=== PATIENT | female | born 1980 | race Caucasian/White ===

== ENCOUNTER 2018-04-18 14:45 | Emergency (ER) | payer MEDICAID ==
[~2018-04-18] VITALS: Ht 170.2 cm; Wt 111.8 kg
[~2018-04-18 14:45] MED LIST: BUPR100T6 PO; CLON0.5T PO; CLON1TAB23 PO; DIAZ2TAB3 PO; FERR325T18 PO; OMEP-110 PO; QUET50TA5 PO; ZOLP10TA PO
[2018-04-18 17:17] VITALS: BP 93/50
[2018-04-18 17:17] LABS: BASOPHILS # (AUTO) 0.04 x10^3/uL (0-0.1); BASOPHILS % (AUTO) 1 % (0-1); EOSINOPHILS # (AUTO) 0.11 x10^3/uL (0-0.4); EOSINOPHILS % (AUTO) 2 % (1-7); LYMPHOCYTES % (AUTO) 38 % (22-44); MD NO; MEAN CORPUSCULAR HEMOGLOBIN 31.8 pg (27.0-34.8); MEAN CORPUSCULAR HGB CONC 34.3 g/dL (32.4-35.8); MEAN CORPUSCULAR VOLUME 92.8 fL (80-100); MEAN PLATELET VOLUME 8.6 fL (7.4-10.4); MONOCYTES # (AUTO) 0.33 x10^3/uL (0.2-0.8); MONOCYTES % (AUTO) 6 % (2-9); NEUTROPHILS # (AUTO) 3.16 x10^3/uL (1.8-6.8); NEUTROPHILS % (AUTO) 54 % (42-75); PLATELET COUNT 278 x10^3/uL (130-400); RED BLOOD COUNT 4.87 x10^6/uL (3.82-5.3); RED CELL DISTRIBUTION WIDTH 13.7 % (9.6-15.2)
[2018-04-18 17:28] LABS: ALANINE AMINOTRANSFERASE 31 U/L (12-78); ALBUMIN 3.9 g/dL (3.4-5.0); ANION GAP 9 mmol/L (5-15); CALCIUM 8.6 mg/dL (8.5-10.1); CHLORIDE 113 mmol/L (98-107); CREATININE 0.75 mg/dL (0.55-1.02); SALICYLATE LEVEL 3.9 mg/dL (2.8-20.0)
[2018-04-18 17:30] LABS: ALKALINE PHOSPHATASE 103 U/L (45-117); BILIRUBIN,TOTAL 0.2 mg/dL (0.2-1.0); TOTAL PROTEIN 7.8 g/dL (6.4-8.2)
[2018-04-18 17:34] LABS: ACETAMINOPHEN < 2 mcg/mL (10-30)
[2018-04-18 18:19] LABS: AMPHETAMINE SCREEN, URINE Negative (Negative); BARBITURATE SCREEN, URINE Negative (Negative); BENZODIAZEPINE SCREEN, URINE Negative (Negative); CANNABINOID SCREEN, URINE Negative (Negative); COCAINE SCREEN, URINE Negative (Negative); METHADONE SCREEN, URINE Negative (Negative); OPIATE SCREEN, URINE Negative (Negative)
== END 2018-04-18 18:44 | disposition home or self-care (01) ==
LOC: ED 17:09
DX: L03.032 Cellulitis of left toe (principal); F10.220 Alcohol dependence with intoxication, uncomplicated
CPT/HCPCS: 80053; 80307; 80329; 82962; 85025; 99284; G0480

== ENCOUNTER 2018-07-31 19:19 | Emergency (ER) | payer MEDICAID ==
[~2018-07-31] VITALS: Ht 170.2 cm; Wt 104.0 kg
[2018-07-31] MEDS ORDERED: LIDOCAINE 1%, 10ML INFIL ONE (19:30)
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
[2018-07-31] MEDS ORDERED: OXYC-432 PO (19:31)
[2018-07-31] MEDS ORDERED: LIDOCAINE-MPF 1%, 5ML ONE ×2 (19:45→19:52)
[2018-07-31 20:06] LABS: AMPHETAMINE SCREEN, URINE Negative (Negative); BARBITURATE SCREEN, URINE Negative (Negative); BENZODIAZEPINE SCREEN, URINE Negative (Negative); CANNABINOID SCREEN, URINE Negative (Negative); COCAINE SCREEN, URINE Negative (Negative); METHADONE SCREEN, URINE Negative (Negative); OPIATE SCREEN, URINE Negative (Negative)
[2018-07-31 20:27] LABS: BASOPHILS # (AUTO) 0.04 x10^3/uL (0-0.1); BASOPHILS % (AUTO) 1 % (0-1); EOSINOPHILS # (AUTO) 0.14 x10^3/uL (0-0.4); EOSINOPHILS % (AUTO) 3 % (1-7); LYMPHOCYTES % (AUTO) 31 % (22-44); MD NO; MEAN CORPUSCULAR HEMOGLOBIN 31.3 pg (27.0-34.8); MEAN CORPUSCULAR HGB CONC 33.9 g/dL (32.4-35.8); MEAN CORPUSCULAR VOLUME 92.2 fL (80-100); MEAN PLATELET VOLUME 8.8 fL (7.4-10.4); MONOCYTES # (AUTO) 0.25 x10^3/uL (0.2-0.8); MONOCYTES % (AUTO) 5 % (2-9); NEUTROPHILS # (AUTO) 3.13 x10^3/uL (1.8-6.8); NEUTROPHILS % (AUTO) 61 % (42-75); PLATELET COUNT 264 x10^3/uL (130-400); RED BLOOD COUNT 4.72 x10^6/uL (3.82-5.3); RED CELL DISTRIBUTION WIDTH 13.6 % (9.6-15.2)
--- NOTE | 2018-07-31 20:27 | NUR ---
PT REPORT FROM GEMA HAYES. THIS RN TO ASSUME CARE OF PT. ROLLER DOORS IN PLACE. SITTER IN HALLWAY.
--- NOTE | 2018-07-31 20:35 | NUR ---
PA AT BEDSIDE FOR SUTURES.
[2018-07-31 20:36] LABS: ALANINE AMINOTRANSFERASE 38 U/L (12-78); ALBUMIN 3.9 g/dL (3.4-5.0); ANION GAP 7 mmol/L (5-15); CALCIUM 8.5 mg/dL (8.5-10.1); CHLORIDE 114 mmol/L (98-107); CREATININE 0.87 mg/dL (0.55-1.02); SALICYLATE LEVEL 3.8 mg/dL (2.8-20.0)
[2018-07-31 20:41] LABS: ALKALINE PHOSPHATASE 99 U/L (45-117); BILIRUBIN,TOTAL 0.1 mg/dL (0.2-1.0); TOTAL PROTEIN 7.5 g/dL (6.4-8.2)
[2018-07-31 21:00] LABS: ACETAMINOPHEN < 2 mcg/mL (10-30)
--- NOTE | 2018-07-31 21:37 | NUR ---
PT ASKING FOR POC. UPDATED ON POC. PT IS UPSET AND STATES "I JUST WANT TO GO HOME. I NEED THIS TO HURRY UP. PT REFUSING DRESSING FOR WOUND ON ARM.
--- NOTE | 2018-07-31 22:29 | NUR ---
[facility] mobile assesser paged
--- NOTE | 2018-07-31 22:41 | NUR ---
PT SLEEPING COMFORTABLY ON BED. RR EVEN AND UNLABORED. NADN. SPOUSE AT BEDSIDE.
--- NOTE | 2018-08-01 00:02 | NUR ---
PT AND SPOUSE GIVEN WATER. BREATHALYZER OF 0.152 NOTED AT THIS TIME. AWARE.
--- NOTE | 2018-08-01 00:41 | NUR ---
[facility] STATES PT IS [place] APPROPRIATE. AWAITING SOBRIETY.
--- NOTE | 2018-08-01 00:46 | NUR ---
RECEIVED REPORT FROM FREDDY HOGUE TO ASSUME PT. CARE. [facility] EVAL HAS BEEN COMPLETED. PT. TO BE ADMIT TO [facility] WHEN SOBER. SPOUSE AT FOR SUPPORT; NO ISSUES WITH THIS. ROOM SECURED. SITTER IN DOORWAY.
--- NOTE | 2018-08-01 02:16 | NUR ---
PT. RESTING ON GURNEY WITH EYES CLOSED. LEFT SIDE LYING. RESP VISIBLE AND NON-LABORED. ROOM SECURED. SITTER IN DOORWAY.
--- NOTE | 2018-08-01 03:41 | NUR ---
PACKED FAXED TO [facility], [facility], AND [facility].
[2018-08-01] MEDS ORDERED: BACITRACIN ZINC OINT 500U/GM, 0.9 GM ONE (03:51)
--- NOTE | 2018-08-01 03:59 | NUR ---
MARIE WITH [facility] CALLED AND STATED THEY RECEIVED THE REFERRAL FOR THIS PT. THE UNIT SHE WOULD BE MOST APPROPRIATE FOR IS FULL AT THE MOMENT. THEY WILL PUT HER ON A PENDING STATUS, AND WILL CALL IF SOMEONE IS DISCHARGED AND A SPACE IS AVAILABLE FOR HER.
--- NOTE | 2018-08-01 03:59 | NUR ---
PT. PROVIDED WITH WATER. WOUND TO LEFT ARM DRESSED AT THIS TIME; PT. COOPERATIVE WITH STAFF. ROOM IS SECURED. GOING TO CAR TO GET MORE OF PT. BELONGINGS TO BE LOCKED UP FOR PT. TO HAVE UPON TRANSFER. PT. DENIES OTHER NEEDS. ROOM REMAINS SECURED. SITTER IN DOORWAY.
--- NOTE | 2018-08-01 04:40 | NUR ---
Called [facility] as Mobile assesser Kristi stated that [facility] had an open bed and would accept patient after she was sober. This MT was told by [facility] admissions that they have been dealing with walk in's and even though they have patient's packet they have not been able to review it yet and therefore do not have an accepting doctor at this time. They state that they will review the packet when they have time and will call when they have reviewed packet and let us known whether they can take the patient. Spoke with [facility] as well and they state that they will have discharges in the morning and will call and take the patient after their discharges. Per Kristi from [facility] mobile assessers patient is acceptable for either facility and both facilities have her referral so either facility, or [facility], can take the patient if they have an accepting doctor. Still awaiting acceptance from either facility at this time.
--- NOTE | 2018-08-01 04:43 | NUR ---
PT. 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 PT. PROVIDED WITH CRACKERS AND WATER PER REQUEST. BELONGINGS THAT BELLO IN PLACED IN 2 BAGS AND SECURED IN LOCKER. PT. DENIES OTHER NEEDS. PILLOW PROVIDED. SITTER REMAINS IN DOORWAY. ROOM SECURED.
--- NOTE | 2018-08-01 05:16 | NUR ---
CALLED [facility] ABOUT POSSIBLE ACCEPTANCE. THEY STATE THEY HAVE ROOM BUT WILL REVIEW THEIR FLOW SHEET AND CALL US BACK. [facility] HOSPITALIST HAS SEEN THE PT. AWAITING HOSPITALIST ORDERS AT THIS TIME.
--- NOTE | 2018-08-01 05:44 | NUR ---
PT MOVED TO ROOM 39. ROOM SECURE, SITTER OUTSIDE DOOR.
--- NOTE | 2018-08-01 05:49 | NUR ---
REPORT RECEIVED FROM FREDDY LOYA
--- NOTE | 2018-08-01 05:51 | NUR ---
REPORT TO FREDDY SALAZAR. PT. MOVED TO ED 39 WITH DOORS DOWN. SITTER IN DOORWAY. PT. AWAITING EVAL BY [facility] FOR ADMISSION.
--- NOTE | 2018-08-01 06:04 | NUR ---
PT'S MOTHER CALLED TO GET AN UPDATE ON PT. PT GAVE PERMISSION TO DISCLOSE ANY MEDICAL INFORMATION TO HER MOTHER. MOTHER UPDATED ON PTS' STATUS AT THIS TIME. PT RESTING QUIETLY ON GURNEY IN NAD. DENIES ANY NEEDS AT THIS TIME. WATCHING TV, WILL CONTINUE TO MONITOR.
--- NOTE | 2018-08-01 06:47 | NUR ---
PER [facility] GRANULATOR OPERATOR THEY ARE UNABLE TO CARE FOR PATIENTS WITH A HX OF MRSA SO THEY ARE UNABLE TO TAKE THE PATIENT AT THIS TIME.
[2018-08-01] MEDS ORDERED: HEPARIN 5,000 UNITS/ML, 1ML SQ SCH (07:00)
[2018-08-01] MEDS ORDERED: ACETAMINOPHEN 325 MG TABLET PO PRN (07:00)
[2018-08-01] MEDS ORDERED: ZOLPIDEM 5MG TABLET PO PRN (07:00)
--- NOTE | 2018-08-01 07:27 | NUR ---
REC BBS REPORT PT RESTING WAITING ON A MEAL
--- NOTE | 2018-08-01 08:00 | NUR ---
MEAL GIVEN SITTER IN THE [place]
--- NOTE | 2018-08-01 08:35 | NUR ---
PT AWARE OF TRANSPORT TO
[2018-08-01] MEDS ORDERED: QUETIAPINE 25MG TABLET PO SCH (09:00)
[2018-08-01] MEDS ORDERED: OMEPRAZOLE 20 MG CAPSULE.DR PO SCH (09:00)
--- NOTE | 2018-08-01 09:19 | NUR ---
REDRESSED ARM WOUND
[2018-08-01] MEDS ORDERED: ACETAMINOPHEN 325 MG TABLET ONE (09:21)
[2018-08-01] MEDS ORDERED: ACETAMINOPHEN 325 MG TABLET PO ONE (09:30)
[2018-08-01 11:34] VITALS: BP 136/74
== END 2018-08-01 11:49 ==
LOC: ED 19:46 → EDIP 08-01 01:18 → UNDOADMOB 08-01 01:18 → ED 08-01 11:49
DX: S51.812A Laceration without foreign body of left forearm, initial encounter (principal); F41.9 Anxiety disorder, unspecified; F10.10 Alcohol abuse, uncomplicated; F32.9 Major depressive disorder, single episode, unspecified; X78.9XXA Intentional self-harm by unspecified sharp object, initial encounter; Y93.89 Activity, other specified; Y92.89 Other specified places as the place of occurrence of the external cause; Y99.8 Other external cause status; Y90.9 Presence of alcohol in blood, level not specified
CPT/HCPCS: 12034; 36415; 80053; 80307; 80329; 82962; 84703; 85025; 99285; G0480